=== PATIENT | female | born 1975 | race Caucasian/White ===

== ENCOUNTER 2024-06-17 13:49 | Emergency (ER) | payer OTHER, SELFPAY ==
[2024-06-17 13:51] VITALS: BP 152/89; PULSE 77; RESP 16; TEMP 36; O2SAT 100; BMI 43.4
== END 2024-06-17 15:38 | disposition home or self-care (01) ==
PROVIDERS: Emergency Provider Emergency Medicine; Referring Provider Emergency Medicine; Visit Provider Emergency Medicine
DX: S60.221A Contusion of right hand, initial encounter (principal); F17.210 Nicotine dependence, cigarettes, uncomplicated; W19.XXXA Unspecified fall, initial encounter
CPT/HCPCS: 73110; 99282

== ENCOUNTER 2024-12-11 08:27 | Emergency (ER) | payer OTHER, SELFPAY ==
[2024-12-11 08:28] VITALS: BP 166/83; PULSE 96; RESP 19; TEMP 37.1; O2SAT 98; BMI 43.3
--- NOTE | 2024-12-11 08:37 | VDLE_ITS ---
Reason For Study Reason For Study: Right leg pain RIGHT LEFT GSV is normal. CFV is compressible, spontaneous, phasic, competent, CFV is compressible, spontaneous, phasic, competent and demonstrates normal augmentation. and demonstrates normal augmentation. FV is compressible, spontaneous, phasic, competent and demonstrates normal augmentation. POP V is compressible, spontaneous, phasic, competent and demonstrates normal augmentation. T/P Trunk is compressible. PTV is compressible. RT PerV is compressible. Procedure This is a venous duplex using B-mode, color flow and spectral Doppler. Exam performed portable in ED. A preliminary report was called and/or faxed to Dr. Nelson. VL/Venous Duplex US, Unilateral Interpretation Summary Deep veins of the right lower extremity are patent and compressible segmentally . There is no evidence of right lower extremity deep vein thrombosis. Valvular competence appears intact within the p roximal deep venous system on the right . The right great saphenous vein appears patent and compressible segmentally. The left common femoral vein is patent and compressible . Ordering Physician: Masood Nelson Performed By: Nini Guerrero RVT
--- NOTE | 2024-12-11 08:37 | ED.VIS.LOWEX ---
HPI History of Present Illness Chief Complaint: Lower Extremity Injury Narrative Narrative: 49-year-old female who denies significant past medical history presents with pain and swelling of her right lower extremity as well as redness that began last night. She relates history that she had pain more in her right medial lower leg on Friday approximately 3 days ago. It felt more like a pulled muscle. She noticed that she had fever and redness to her right lower extremity yesterday evening. Temperature was as high as 101 ?F last evening. She usually takes Aleve in the morning but did not take it this morning. She denies any chest pain or shortness of breath. She noticed redness to her right lower extremity. It felt more like a knot in her muscle in the right lower extremity and 1 certain spot. She states that the redness feels like it is getting worse. PFSH PFS Medical History no medical history Home Medications ?Medication ?Instructions ?Recorded ?Last Taken ?Type caffeine 200 mg tablet (Alertness 100 mg PO DAILY 12/11/24 12/11/24 History Aid) cyanocobalamin (vitamin B-12) 1,000 mcg PO DAILY 12/11/24 12/11/24 History 1,000 mcg tablet,extended release (Vitamin B-12 ER) krill oil 500 mg capsule 500 mg PO DAILY 12/11/24 12/11/24 History naproxen sodium 220 mg capsule 440 mg PO DAILY pain 12/11/24 12/10/24 History (Aleve) sulfamethoxazole 800 1 tab PO DAILY 7 days #7 tabs 12/11/24 Unknown Rx mg-trimethoprim 160 mg tablet (Bactrim DS) vitamin E 670 mg (1,000 unit) 670 mg PO DAILY 12/11/24 12/11/24 History capsule Allergy/AdvReac Type Severity Reaction Status Date / Time Penicillins Allergy Severe PT UNSURE Verified 12/11/24 08:28 OF REACTION Family History no significant family his Surgical History no surgical history Social History Smoking Status: Current every day smoker tobacco type: cigarettes ROS ROS ED ROS Narrative Review of systems positive for fever, dull achy pain in right lower extremity, lower portion of leg. Positive redness to area. Denies chest pain, shortness of breath. No nausea or vomiting, no exacerbating or alleviating factors. EXAM Physical Exam Narrative Exam Narrative: Afebrile. Vital signs noted. Nontoxic-appearing. Cardiovascular examination reveals a regular rate and rhythm. Lungs are clear to auscultation bilaterally. The abdomen is soft, nontender, with positive bowel sounds. Examination of the the right lower extremity does reveal mild erythema with tenderness to palpation along the medial aspect of the right lower portion. She has palpable dorsalis pedis pulse distally. Full range of motion of knee and right ankle. No crepitance of skin. No palpable cord. No posterior calf tenderness. Const Vital Signs: 12/11/24 08:28 Temperature 98.7 F Temperature Source Oral Pulse Rate 96 Respiratory Rate 19 H Blood Pressure 166/83 H Blood Pressure Mean 110 Pulse Ox 98 Oxygen Delivery Method Room Air MDM MDM MDM Narrative Medical decision making narrative: The differential diagnosis includes but not limited to DVT versus superficial thrombophlebitis versus cellulitis versus necrotizing fasciitis. I have very low clinical suspicion for necrotizing fasciitis as there is no crepitance of the skin. I do not feel x-rays are indicated as she has had no trauma to the area. Ultrasound will be obtained to rule out DVT and superficial thrombophlebitis. Should be negative, she will be treated as a cellulitis with antibiotics. She is currently afebrile and she has not taken an antipyretic. I do not feel that she is meeting any SIRS criteria and that laboratory work is currently indicated. In discussion with the residential air sealing technician, she has negative for DVT of the right lower extremity. At this point in time, upon repeat examination, her cellulitic area has not extended outside the margin drawn by the RN. Hence, I do not feel that she has necrotizing fasciitis. I feel she can be discharged to follow-up with a primary care provider. She was given her first dose of Bactrim DS and a prescription written for the next week. She will elevate her leg when possible. Return instructions to the emergency department were reviewed. Disposition is discharged home in stable condition. History & Record Review Discussion w/independent historian: Patient Discharge Plan Triage Chief Complaint: Lower Extremity Injury ED Provider: Masood Nelson Dx/Rx/DC Orders Clinical Impression: Cellulitis of right lower leg, Leg pain Instructions: ED Cellulitis Prescriptions: New sulfamethoxazole-trimethoprim [Bactrim DS] 800-160 mg tablet 1 tab PO DAILY 7 Days Qty: 7 0RF No Action vitamin E 670 mg (1,000 unit) capsule 670 mg PO DAILY krill oil 500 mg capsule 500 mg PO DAILY naproxen sodium [Aleve] 220 mg capsule 440 mg PO DAILY cyanocobalamin (vitamin B-12) [Vitamin B-12] 1,000 mcg tablet extended release 1,000 mcg PO DAILY caffeine [Alertness Aid] 200 mg tablet 100 mg PO DAILY Primary Care Provider: Care Physician,No Primary Referrals: Efrain Kaur MD [Med Staff - Active Staff] - 3-5 Days if not improving Care Physician,No Primary [Primary Care Provider] - 3-5 Days if not improving Activity Restrictions/Additional Instructions: Antibiotics as directed. Return to the emergency department with sustained high fever, increased redness to your right leg, new or worsening symptoms. Print Language: Greek Disposition Disposition: Home, Self Care
[2024-12-11 10:12] VITALS: BP 166/83; PULSE 96; RESP 19; TEMP 37.1; O2SAT 98
[2024-12-11] MEDS: Smz/Tmp Ds Tablet 1 TABLET PO (10:14)
== END 2024-12-11 10:17 | disposition home or self-care (01) ==
PROVIDERS: Emergency Provider Emergency Medicine; Visit Provider Emergency Medicine
DX: L03.115 Cellulitis of right lower limb (principal); R50.9 Fever, unspecified; M79.661 Pain in right lower leg; F17.210 Nicotine dependence, cigarettes, uncomplicated
CPT/HCPCS: 93971; 99282